=== PATIENT | male | born 1945 | race Caucasian/White ===

== ENCOUNTER 2019-10-31 04:59 | Observation (INO) ==
--- NOTE | 2019-10-03 14:45 | PAT Medication Instructions ---
Medication Instructions Date of Service October 03, 2019 Home Medications Metoprolol 1 tab PO QAM allopurinol 300 mg PO BID aspirin [Aspir-81] 81 mg PO QAM citalopram 40 mg PO QAM lisinopril 10 mg PO QAM omeprazole 20 mg PO QAM pregabalin [Lyrica] 150 mg PO BID DO NOT take the morning of surgery lisinopril 10 mg PO QAM Take morning of surgery With a small sip of water, OTHERWISE NOTHING TO EAT OR DRINK AFTER MIDNIGHT: Metoprolol 1 tab PO QAM allopurinol 300 mg PO BID aspirin [Aspir-81] 81 mg PO QAM citalopram 40 mg PO QAM omeprazole 20 mg PO QAM pregabalin [Lyrica] 150 mg PO BID Take evening before surgery allopurinol 300 mg PO BID pregabalin [Lyrica] 150 mg PO BID Other Notes If you have any questions please call us at [phone] or [phone] or [phone] or [phone]
--- NOTE | 2019-10-04 10:49 | Anesthesiology Consultation ---
Date of Service October 04, 2019 Assessment & Plan (1) Encounter for pre-operative examination: Chart Review Chart Review: Pending: Refer to Additional Notes / Consult section (surgeon ordered PCP clearance, upcoming cardio visit, pre op Covid testing) and Patient seen in Pre Admission Testing Pending surgeon ordered PCP clearance and 10/09 cardio visit (possible clearance per patient). Per PAT appt 10/04/19, [facility]. works at grocery store but takes all precautions. Patient usually wears mask in public Teaching & Discussion Pre-Anesthesia Teaching/Discussion Notes: Instructed NPO after midnight before surgery,except medications with 15 cc of water. Medication instructions provided according to the PAT guidelines. History Surgery Operation Date: 10/31/19 10:20 Proposed Procedures p Left Total Knee Arthroplasty - Evan Arias MD Height/Weight Height: 5 ft 5 in Weight: 83.6 kg Allergies Allergy/AdvReac Type Severity Reaction Status Date / Time No Known Allergies Allergy Verified 10/03/19 09:08 Medications Home Medications Medication Instructions Recorded Confirmed Last Taken allopurinol 300 mg PO BID 10/03/19 10/03/19 Unknown aspirin [Aspir-81] 81 mg PO QAM 10/03/19 10/03/19 Unknown citalopram 40 mg PO QAM 10/03/19 10/03/19 Unknown lisinopril 10 mg PO QAM 10/03/19 10/03/19 Unknown omeprazole 20 mg PO QAM 10/03/19 10/03/19 Unknown pregabalin [Lyrica] 150 mg PO BID 10/03/19 10/03/19 Unknown metoprolol succinate 25 mg PO DAILY 10/04/19 10/04/19 Unknown Past Medical History Medical History (Updated 10/04/19 @ 16:11 by Geovanna Healy PA-C) Anxiety Arthritis CAD (coronary artery disease) s/p stent to Cx Cancer MELANOMA BACK-REMOVAL X 2 Depression Fibromyalgia GERD (gastroesophageal reflux disease) Controlled and stable Gout No recent flares- controlled with med Myocardial Infarction 04/2018-F/U [facility] Temporomandibular joint disorder BILAT POPS-HAS NEVER LOCKED Exercise / Class Metabolic Activity II 4-5 Yardwork/Stairs/Walk up hill (one flight of stairs- no chest pain or SOB- uses walking cane for long distance ambulation or if knee pain flared up ) Past Surgical History Surgical History (Updated 10/04/19 @ 16:11 by Geovanna Healy PA-C) H/O neck surgery BENIGN EXCISION MASS History of cardiac cath 04/2018 1 STENT/[facility] History of cystoscopy WITH BIOPSY History of herniorrhaphy R/L Status post surgical removal of malignant neoplasm of skin Past Anesthesia History No Hx of Anesthesia Complications and No Family Hx of Anesthesia Complications History of PONV No Hx of PONV and No Hx of Motion Sickness Social History Smoking Status: Never smoker Do You Dip or Chew Tobacco: No Hx Alcohol Use: Yes Alcohol type: beer alcohol intake frequency: other Alcohol Intake Frequency Comment: 1X Q 3 MONTHS Hx Substance Use: No Review of Systems Patient denies chest pain, shortness of breath, dyspnea on exertion, cough, wheezing, palpitations. No hx of seizures, stroke, apnea/snoring. No hx of blood clots or blood t ransfusions Physical Exam Vital Signs VITALS BP 102/66 P 60 TEMP 98.1 SP02 96% RESP 16 Constitutional no acute distress ENMT Mouth: no chipped teeth Thyromental Distance: > or= 3.5 Finger Breadths (3.5) Mallampati Class: II Partial top denture Missing molars on bottom Neck + short neck, + thick neck and + limited neck extension (moderate to severe ) Respiratory normal respiratory effort; no respiratory distress Auscultation: lungs clear to auscultation bilaterally and + diminished lung sounds (throughout- mild ); no wheezes Cardiovascular Rate/Rhythm: regular rate and regular rhythm Heart Sounds: no murmur Vessels: no carotid bruit Musculoskeletal Spine: + pain with cervical ROM Neurologic moves all extremities Psychiatric Orientation: alert Testing Laboratory Results PT 10.8 Seconds (9.0-12.0) 10/04/19 11:19 INR 1.0 (0.9-1.1) 10/04/19 11:19 Urine Color Yellow 10/04/19 11:19 Urine Appearance Clear (Clear) 10/04/19 11:19 Urine pH 5.5 (4.5-7.5) 10/04/19 11:19 Ur Specific [place] 1.018 (1.000-1.030) 10/04/19 11:19 Urine Protein Negative (Negative) 10/04/19 11:19 Urine Glucose (UA) Negative (Negative) 10/04/19 11:19 Urine Ketones Negative (Negative) 10/04/19 11:19 Urine Nitrite Negative (Negative) 10/04/19 11:19 Ur Leukocyte Esterase Negative (Negative) 10/04/19 11:19 Blood Type O Positive 10/04/19 11:19 Antibody Screen NEGATIVE 10/04/19 11:19 10/04/19 11:19 Urine Culture - Preliminary Urine,Clean Catch No growth - Less than 1,000 colonies/mL, Final report to follow. 10/02/19= WBC: 6.3 H/H: 14.6/45.9 PLATELETS: 195 SODIUM: 141 POTASSIUM: 4.1 CHLORIDE: 107 CO2: 27 BUN: 20 CREATININE: 1.2 GLUCOSE: 105 Electrocardiogram Date: 10/04/19 Findings: + SB @ (59) Echocardiogram Date: 04/22/18 EF: 55-60% LV Function: normal LV- grossly normal size. RV- normal size, thickness and systolic function. MV grossly normal in structure. Stress Test Date: 05/13/18 Type: exercise [facility] exercise EKG taken to 5.0 METS. MPHR 66% obtained. No obvious ST-T wave changes or exercise induced arrhythmias. Cardiac Catheterization Date: 04/21/18 LAD= 50-75% Cx= 50-95% RCA= 60% Three vessel CAD and IFR RCA 0.97. Successful one vessel stenting of left Cx artery. Anomalous RCA cannulated with ALI.
[2019-10-04 13:07] LABS: Appearance Urine Clear (Clear); Bilirubin Urine Negative (Negative); Blood Urine Negative (Negative); Color Urine Yellow; Glucose Urine UA Negative (Negative); Ketones Urine Negative (Negative); Leukocyte Esterase Urine Negative (Negative); Nitrite Urine Negative (Negative); Protein Urine Negative (Negative); Specific Gravity Urine 1.018 (1.000-1.030); Urobilinogen Urine Negative (Negative); pH Urine 5.5 (4.5-7.5)
[2019-10-04 13:34] LABS: Prothrombin Time 10.8 Seconds (9.0-12.0)
--- NOTE | 2019-10-04 14:06 | Electrocardiogram Report ---
Test Reason : Blood Pressure : / mmHG Vent. Rate : 059 BPM Atrial Rate : 059 BPM P-R Int : 144 ms QRS Dur : 096 ms QT Int : 432 ms P-R-T Axes : 067 071 061 degrees QTc Int : 427 ms Sinus bradycardia Otherwise normal ECG No previous ECGs available Confirmed by Claudio Lord ([id number]) on 10/04/2019 2:05:29 PM Referred By: Evan Arias Confirmed By:Claudio Lord
[2019-10-31] MEDS: LR 500ML BOLUS, THEN 15ML/HR IV SCH (05:40)
[2019-10-31] MEDS ORDERED: LR 60ML/HR IV SCH (06:00)
[2019-10-31] MEDS ORDERED: CEFAZOLIN 2000MG 2,000 MG/15 ML SYR IV SCH (06:00)
[2019-10-31] MEDS ORDERED: TRANEXAMIC ACID 1,000 MG x 1 **For Topical Use TOP SCH ×2 (06:00)
[2019-10-31] MEDS ORDERED: ROPIVACAINE 0.5% HCL/PF 150 MG, BUPIVACAINE 0.5% MPF 30 ML, EPINEPHrine 0.15 MG, Ketoro... INFIL SCH (06:00)
[2019-10-31] MEDS ORDERED: CeleBREX 200 MG CAP PO SCH (06:00)
[2019-10-31] MEDS ORDERED: BUPIVACAINE 0.5 % 5 MG/1 ML PF 10ML VIAL ONE (06:22)
[2019-10-31] MEDS ORDERED: ROPIVACAINE 0.5% 5 MG/ML 30 ML VIAL ONE (06:23)
[2019-10-31] MEDS ORDERED: EPINEPHrine INJ 1 MG/ML AMP ONE ×2 (06:23→06:53)
--- NOTE | 2019-10-31 06:40 | History & Physical Bridge Note ---
Date of Service October 31, 2019 History & Physical Bridge Note I have examined the patient, reviewed the History & Physical and in the interval since the performance of the History & Physical I have noted the following changes of clinical significance: no changes noted Patient is aware of the risks and is asymptomatic COVID-19. Currently, COVID-19 test is pending.
[2019-10-31] MEDS ORDERED: MIDAZOLAM HCL 1 MG/ML 2ML VIAL ONE (06:45)
[2019-10-31] MEDS ORDERED: ONDANSETRON INJ 2 MG/ML 2 ML VIAL IV PRN (07:06)
[2019-10-31] MEDS ORDERED: ePHEDrine sulfate 50 MG/ML AMP IV PRN (07:06)
[2019-10-31] MEDS ORDERED: ATROPINE SULFATE 0.1 MG/ML 10ML SYR IV PRN (07:06)
[2019-10-31] MEDS ORDERED: HYDROmorphone INJ 0.5 MG/0.5 ML SYR IV PRN ×2 (07:06→10:14)
[2019-10-31] MEDS ORDERED: MEPERIDINE HCL 25 MG/ML CARP/VIAL IV PRN (07:06)
[2019-10-31] MEDS ORDERED: PHENYLEPHRINE 100MCG/ML 5ML SYR IV PRN (07:06)
[2019-10-31] MEDS ORDERED: LABETALOL HCL IV 5 MG/ML 20ML IV PRN (07:06)
[2019-10-31] MEDS ORDERED: fentaNYL citrate 100 MCG/2 ML VIAL IV PRN (07:06)
[2019-10-31] MEDS ORDERED: LIDOCAINE HCL 2% 2 ML VIAL/AMP(20MG/ML) INFIL ONE (07:26)
[2019-10-31] MEDS ORDERED: PROPOFOL IV EMULSION 10 MG/ML 20 ML VIAL IV ONE ×2 (07:26→08:13)
[2019-10-31] MEDS ORDERED: ORTHO JOINT ANESTHETIC ONE (08:50)
[2019-10-31] MEDS ORDERED: ePHEDrine sulfate 50 MG/ML SYR ONE (08:58)
--- NOTE | 2019-10-31 09:56 | Post Operative Brief Note ---
Immediate Post Op Note v1 Date of Surgery October 31, 2019 Pre & Post Diagnosis Operation Date: 10/31/19 07:00 Pre-Op Diagnosis: Left Knee Osteoarthritis Post-Op Diagnosis: Left Knee Osteoarthritis I identified the patient and participated in the time-out.: Yes Procedure Operation Date: 10/31/19 07:00 Actual Procedures p Left Total Knee Arthroplasty(Left) - Evan Arias MD Surgeon Evan Arias MD Silver Plater Hamzah Linn PA-C (No fellow Avail) Estimated Blood Loss 150 Findings Consistent with Post-Op Diagnosis Fluids 1500 cc Specimens L knee contents Anesthesia Type MAC Spinal Regional Complications none
--- NOTE | 2019-10-31 09:57 | Operative Report ---
Post Operative Report Pre & Post Diagnosis Operation Date: 10/31/19 07:00 Pre-Op Diagnosis: Left Knee Osteoarthritis Post-Op Diagnosis: Left Knee Osteoarthritis I identified the patient and participated in the time-out.: Yes Procedure Operation Date: 10/31/19 07:00 Actual Procedures p Left Total Knee Arthroplasty(Left) - Evan Arias MD Surgeon Evan Arias MD Java Programmer Hamzah Linn PA-C (No fellow Avail) Estimated Blood Loss 150 Findings See Below Examined Under Anesthesia: Pre-op ROM -- There was 10 degrees to 100 degrees of flexion Ligamentous examination -- revealed stable Brian, posterior drawer, varus and valgus stress at 10 and 30 degrees. Outerbridge Type IV changes of medial and patellofemoral compartments, there was Outerbridge type II3 changes of the lateral compartment. Post-op ROM -- 0-130 degrees Fluids 1500 cc Specimens Left knee contents Drains N/A Anesthesia Type MAC Spinal Regional Complications none Indications This is a 73-year-old male who has clinical and radiographic findings consistent with osteoarthritis of the a left knee. I recommended that a left total knee replacement be performed. The patient understands the risks of surgery, which include but not limited to: bleeding, infection, re-operation, damage to nerves and arteries, continued knee pain, knee stiffness, DVT, and . The patient understands all of these instructions and explanations, all of his questions have been satisfactorily addressed and the patient has elected to proceed. Informed consent was signed. Description of Procedure IMPLANTS: 1. Femur: Triathlon #4 Left PS. 2. Tibia: Triathlon #4 [place]. 3. Insert: Triathlon #4 x 9 mm PS X3 poly. 4. Patella: Triathlon A32 x 9 mm X3 poly. 5. Simplex cement. Lenka Linn PA-C is assisting with positioning, retraction, and closure due to fellow not available. PROCEDURE: The patient was taken to the Operating Room and placed in the supine position after spinal and adductor canal nerve block was administered. My initials and a multidisciplinary time-out were used to identify the left leg as the correct operative limb. A tourniquet was placed high in the thigh. Prior to the incision, 2 grams of intravenous Ancef were given. The left leg was then prepped and draped in a standard sterile fashion. An Esmarch was used to exsanguinate the leg and the tourniquet was inflated to 250 mmHg. The planned mid-line 20 cm incision was created exposing the extensor mechanism. The medial parapatellar arthrotomy was made and the patella was everted. The patella was addressed first. It was prepared by reaming from 21 mm down to 10 mm. An A32 button was found to fit best. The peg holes were made in the standard fashion. The femur was addressed next and the guide ean was placed intramedullary. The initial cutting block was placed with 5 degrees of valgus and removing 10 mm for the distal cut. The cut was made and the 4-in-1 cutting block for a size 4 femur was placed. These cuts and the cuts to place the box were made in the standard fashion. Our attention was then drawn to the tibia cut with the external cutting guide, taking 4 mm from the medial low side. There was sufficient extension and flexion gap to fit a 9 mm spacer. A #4 Tibial baseplate fit well. A trial with a 9 mm spacer showed excellent stability in both flexion and extension, with good ligament balance. Range of motion of 0-130 degrees. The tibial baseplate was pinned and the final preparation for the keel and stem was made. All the trial components were tested again, with good stability and thumbs free tracking of the patella. All components were removed. The tourniquet was deflated. Hemostasis was obtained. 90 ml of total knee cocktail were injected into the soft tissues and periosteum. A bone plug was placed in the femur and covered with bone wax. Topical TXA was used after irrigation of the wound. After a 15 minute break, the limb was exsanguinated again and the tourniquet was re-inflated. All surfaces were copiously irrigated prior to placement of the components. The femoral component and Tibial baseplate were placed with the first and then the 9 mm X3 poly was placed. With the same batch of Simplex cement the patellar button was placed. Again the range of motion and stability were excellent and unchanged. The extensor mechanism was closed with 1-0 and 0 Vicryl with the knee bent approximately 60 degrees in a standard fashion. The peritenon and deep fascia was closed with 2-0 Vicryl. The subcutaneous layer was closed with 3-0 Vicryl. The skin was closed with Zipline. The limb was cleaned and dried. 4x4 dressing was placed over top followed by ABDs, sterile Webril, and a foot to thigh Louie bandage. The patient was then transferred to the Recovery Room in stable condition. The sponge and needle counts were correct. POST-OP INSTRUCTIONS: The patient will be WBAT. The patient will be admitted to the hospital, with a hospitalist consult to medically manage. The patient will use the knee immobilizer when ambulating and standing until good quad control is achieved. Labs will be obtained during the stay. DVT prophylaxis will included aspirin for 6 weeks, TEDs, and mechanical foot pumps. The dressing will be changed prior to their discharge or postop day #2 and covered with a Silverlon dressing, whichever comes first. I attest to the content of the Intraoperative Record and any orders documented therein. Any exceptions are noted below.
[2019-10-31] MEDS ORDERED: OXYCODONE HCL IR 5 MG TAB (IMMEDIATE RELEASE) PO PRN (10:14)
[2019-10-31] MEDS ORDERED: ALUMINUM/MAGNESIUM SUSP 30 ML UDC PO PRN (10:14)
[2019-10-31] MEDS ORDERED: DiphenhydrAMINE HCL 50 MG/ML VIAL IV PRN (10:14)
[2019-10-31] MEDS ORDERED: NALOXONE HCL 0.4 MG/1 ML VIAL/CARP IV PRN (10:14)
[2019-10-31] MEDS ORDERED: bisacodyL 10 MG SUPP PR PRN (10:14)
[2019-10-31] MEDS ORDERED: MAGNESIUM HYDROXIDE SUSP 30 ML UDC PO PRN (10:14)
[2019-10-31] MEDS ORDERED: METOCLOPRAMIDE HCL INJ 5 MG/ML 2 ML VIAL IV PRN (10:14)
--- NOTE | 2019-10-31 10:18 | Operative Report ---
Post Operative Report Pre & Post Diagnosis Operation Date: 10/31/19 07:00 Pre-Op Diagnosis: Left Knee Osteoarthritis Post-Op Diagnosis: Left Knee Osteoarthritis I identified the patient and participated in the time-out.: Yes Procedure Operation Date: 10/31/19 07:00 Actual Procedures p Left Total Knee Arthroplasty(Left) - Evan Arias MD Surgeon Evan Arias MD [employer] Assistant Principal Hamzah Linn PA-C (No fellow Avail) Estimated Blood Loss 150 Findings Consistent with Post-Op Diagnosis Specimens bone and soft tissue Complications none Indications See Dr Arias operative report for full details Description of Procedure See Dr Arias operative report for full details. I was lead recreation assistant during entire case to include prepping, draping, limb and instrument handling, wound closure, dressings. I attest to the content of the Intraoperative Record and any orders documented therein. Any exceptions are noted below.
--- NOTE | 2019-10-31 10:29 | Anesthesiology Progress Note ---
Date of Service October 31, 2019 Anesthesia Post Procedure Vital Signs Vital Signs: Temp Pulse Pulse Resp BP BP Pulse Ox 10/31/19 10:20 58 L 17 111/61 97 10/31/19 10:10 60 21 104/62 97 10/31/19 10:03 36.7 C 59 L 12 111/66 95 10/31/19 05:25 36.4 C L 62 18 122/80 96 Transfer of Care Handoff Completed per policy Notes Mental Status: alert / awake / arousable Patient Amnestic to Procedure: Yes Nausea / Vomiting: adequately controlled Pain: adequately controlled Airway Patency, RR, SpO2: stable & adequate BP & HR: stable & adequate Hydration State: stable & adequate Neuraxial Anesthesia: was administered and sensory block is resolving Anesthetic Complications: no major complications apparent and Pt Satisfied with anesthetic care
--- NOTE | 2019-10-31 10:42 | XRay Report ---
XR knee LT 1 or 2V routine HISTORY: 73 years-old Male Surgical Post Op [knee total joint arthroplasty COMPARISON: Leg length study radiographs 06/08/2019 TECHNIQUE: 2 views of the left knee FINDINGS: Left knee total joint arthroplasty and patella resurfacing. Expected postoperative soft tissue swelli ng with deep tissue air. Satisfactory alignment without acute fracture or retained foreign body. Surg ical drainage catheter. Arterial calcifications. IMPRESSION: Left knee total joint arthroplasty with expected postoperative changes. ACT 112: Negative or not required by law. The above report was generated using voice recognition software. It may contain grammatical, syntax o r spelling errors. Electronically signed by: Alexys Leon M.D. 10/31/2019 10:40 AM
--- NOTE | 2019-10-31 13:00 | Orthopedic Progress Note ---
Date of Service October 31, 2019 Assessment & Plan (1) Arthritis of knee, left: POD #0 s/p L TKA, doing as well as expected. Resume diet. WBAT LLE with walker, next 48 hours or until demonstrates good quad control use immobilizer. OOB to chair. Continue pain control. Check labs tomorrow. DVT prophylaxis: TEDs 3 weeks, foot pumps while in hospital, ASA 81 mg BID for 6 weeks. PT/OT. Appreciate Hospitalist input. D/C planning. Present on Admission?: Yes Admission and Anticipated Discharge Date Admission Date: October 31, 2019 Subjective Feeling pretty good. Still cannot feel Review of Systems Review of Systems: All systems reviewed & are unremarkable except as noted in HPI & below Physical Exam Physical Exam: LLE: Dressing clean, dry, intact. Calf soft. Results & Data ([facility]) Vital Signs (Past 12 Hours) Vital Signs Temp Pulse Pulse Resp BP BP Pulse Ox 10/31/19 12:53 36.6 C 61 18 97/61 L 99 10/31/19 12:00 36.4 C L 53 L 18 113/70 98 10/31/19 11:25 36.3 C L 50 L 16 109/66 98 10/31/19 10:50 36.6 C 53 L 16 105/62 97 10/31/19 10:30 36.4 C L 56 L 20 110/67 97 10/31/19 10:20 58 L 17 111/61 97 10/31/19 10:10 60 21 104/62 97 10/31/19 10:03 36.7 C 59 L 12 111/66 95 10/31/19 05:25 36.4 C L 62 18 122/80 96 Diagnostic Findings AP & Lateral X-rays L knee shows cemented components for Left TKA in good position.
[2019-10-31] MEDS: ACETAMINOPHEN 500 MG TAB PO SCH ×2 (14:15→21:44)
[2019-10-31] MEDS: CEFAZOLIN 2000MG 2,000 MG/15 ML SYR IV SCH ×2 (14:32→22:06)
[2019-10-31] MEDS: SODIUM CHLORIDE 0.9% 1000ML 1,000 ML IV SCH (14:32)
[2019-10-31] MEDS: Scopolamine CHECK PATCH PLACEMENT SCH (16:16)
--- NOTE | 2019-10-31 16:38 | Hospitalist Consultation ---
Date of Consultation October 31, 2019 Assessment & Plan (1) Arthritis of knee, left: s/p left tka Dvt proph, pain medications per surgery Monitor for acute blood loss (2) Anxiety: Continue citalopram (3) Depression: Continue citalopram (4) Fibromyalgia: Continue Lyrica (5) Hypertension: Continue metoprolol, hold lisinopril for POD #1 to avoid hypotension (6) CAD (coronary artery disease): Continue metoprolol, ASA History of Present Illness Attending Physician: Evan Arias MD History of Present Illness Mr. Hernandez is s/p left TKA today. He is doing well, no complaints. Allergies Allergy/AdvReac Type Severity Reaction Status Date / Time No Known Allergies Allergy Verified 10/31/19 05:32 Home Medications Home Medications Medication Instructions Recorded Confirmed Type allopurinol 300 mg PO BID 10/03/19 10/31/19 History aspirin [Aspir-81] 81 mg PO QAM 10/03/19 10/31/19 History citalopram 40 mg PO QAM 10/03/19 10/31/19 History lisinopril 10 mg PO QAM 10/03/19 10/31/19 History omeprazole 20 mg PO QAM 10/03/19 10/31/19 History pregabalin [Lyrica] 150 mg PO BID 10/03/19 10/31/19 History metoprolol succinate 25 mg PO DAILY 10/04/19 10/31/19 History Patient History Medical History Anxiety Arthritis CAD (coronary artery disease) s/p stent to Cx Cancer MELANOMA BACK-REMOVAL X 2 Depression Fibromyalgia GERD (gastroesophageal reflux disease) Controlled and stable Gout No recent flares- controlled with med Hyperlipidemia Hypertension [facility]ocardial [facility]ction [facility] Temporomandibular joint disorder BILAT POPS-HAS NEVER LOCKED Surgical History H/O neck surgery BENIGN EXCISION MASS History of cardiac cath 04/2018 1 STENT/[facility] History of cystoscopy WITH BIOPSY History of herniorrhaphy R/L Status post surgical removal of malignant neoplasm of skin Family History Other Family history non-contributory Social History Smoking Status: Never smoker Second Hand Exposure: Yes (SPOUSE USED TO SMOKE/QUIT); Do You Dip or Chew Tobacco: No; Hx Alcohol Use: Yes Alcohol type: beer Hx Substance Use: No Preferred Language: Azerbaijani Communication Ability: Effective Mix Technician Required: No Beliefs That Will Affect Care: None marital status: Current Living Situation: Spouse Other Information That Helps Us Care for You: No Feels Safe at Home: Yes Safety Concerns: Feels Safe At This Time Review of Systems Constitutional: no fever, no chills and no body aches Respiratory: no cough, no dyspnea and no wheezing Cardiovascular: no chest pain and no dyspnea Gastrointestinal: no abdominal pain, no nausea and no vomiting Genitourinary: no dysuria and no urinary hesitancy Musculoskeletal: no back pain and no joint pain Integumentary: no rash Physical Exam Physical Exam: General: no distress Eyes: normal inspection, PERLL Respiratory: chest non tender, clear to auscultation, normal breath sounds, no respiratory distress, no accessory muscle use Cardiac: regular rate and rhythm, no rub or gallop, no murmur, no edema, no jvd GI/: active bowel sounds, no abd pain or tenderness, soft, non distended Extremities: normal range of motion, normal strength, non tender Neuro/Psych: alert and oriented x 3, normal mood and affect Skin: normal color, dry Results & Data Results & Data ([facility]) Vital Signs (Past 12 Hours) Vital Signs Temp Pulse Pulse Resp BP BP Pulse Ox 10/31/19 16:12 36.7 C 59 L 18 123/73 94 10/31/19 14:08 36.5 C 59 L 18 105/64 96 10/31/19 12:53 36.6 C 61 18 97/61 L 99 10/31/19 12:00 36.4 C L 53 L 18 113/70 98 10/31/19 11:25 36.3 C L 50 L 16 109/66 98 10/31/19 10:50 36.6 C 53 L 16 105/62 97 10/31/19 10:30 36.4 C L 56 L 20 110/67 97 10/31/19 10:20 58 L 17 111/61 97 10/31/19 10:10 60 21 104/62 97 10/31/19 10:03 36.7 C 59 L 12 111/66 95 10/31/19 05:25 36.4 C L 62 18 122/80 96 PG Care Time/CCT Total # of Minutes Spent Total Time Spent with Patient: Total time spent is greater than 50% in coordination of care (as documented) at patient's floor/unit and/or counseling patient: Coding Level of Care Code 97861 Inpt Consult Level 4 Diagnoses Arthritis of knee, left M17.12 Anxiety F41.9 Depression F32.9 Fibromyalgia M79.7 Hypertension I10 CAD (coronary artery disease) I25.10
[2019-10-31] MEDS: FERROUS GLUCONATE 324 MG TAB PO SCH (17:53)
[2019-10-31] MEDS: ASCORBIC ACID 500 MG TAB PO SCH (17:53)
[2019-10-31] MEDS ORDERED: SENNA 8.6 MG TAB PO SCH (21:00)
[2019-10-31] MEDS: allopurinoL 300 MG TAB PO SCH (21:44)
[2019-10-31] MEDS: PREGABALIN 150 MG CAP PO SCH (21:44)
[2019-10-31] MEDS: DOCUSATE SODIUM 100 MG CAP PO SCH (21:44)
[2019-11-01] MEDS: Scopolamine CHECK PATCH PLACEMENT SCH ×2 (00:15→09:21)
[2019-11-01] MEDS: SODIUM CHLORIDE 0.9% 1000ML 1,000 ML IV SCH (01:00)
[2019-11-01] MEDS: ACETAMINOPHEN 500 MG TAB PO SCH ×2 (05:57→12:32)
[2019-11-01] MEDS: LR 500ML BOLUS, THEN 15ML/HR IV SCH (05:57)
[2019-11-01 06:20] LABS: Hematocrit (blood only) 35.5 % (42-52); Hemoglobin 11.8 g/dL (14.0-18.0); Mean Corpuscular Hemoglobin 28.6 pg (25-34); Mean Corpuscular Hgb Conc 33.2 g/dL (32-36); Mean Corpuscular Volume 86.2 fL (80-100); Mean Platelet Volume 10.6 fL (7.4-10.4); Platelet Count 134 K/uL (130-400); RDW Coefficient of Variation 15.1 % (11.5-14.5); RDW Standard Deviation 47.3 fL (36.4-46.3); Red Blood Count 4.12 M/uL (4.7-6.1); White Blood Count 8.72 K/uL (4.8-10.8)
[2019-11-01 06:56] LABS: BUN Creatinine Ratio 17.6 (10-20); Calcium 8.7 mg/dl (8.5-10.1); Creatinine Clr Calc Pharmacy 52.8 ml/min; Est GFR (African American) 67.1; Est GFR (Non-African American) 57.9
--- NOTE | 2019-11-01 07:59 | Anesthesiology Progress Note ---
Date of Service November 01, 2019 Anesthesia Post Procedure Vital Signs Vital Signs: Temp Pulse Pulse Resp BP BP Pulse Ox 11/01/19 07:21 36.7 C 62 18 118/74 96 11/01/19 03:47 37.1 C 63 18 114/61 95 10/31/19 23:45 36.6 C 56 L 20 109/71 94 10/31/19 21:42 36.6 C 55 L 18 110/70 94 10/31/19 16:12 36.7 C 59 L 18 123/73 94 10/31/19 14:08 36.5 C 59 L 18 105/64 96 10/31/19 12:53 36.6 C 61 18 97/61 L 99 10/31/19 12:00 36.4 C L 53 L 18 113/70 98 10/31/19 11:25 36.3 C L 50 L 16 109/66 98 10/31/19 10:50 36.6 C 53 L 16 105/62 97 10/31/19 10:30 36.4 C L 56 L 20 110/67 97 10/31/19 10:20 58 L 17 111/61 97 10/31/19 10:10 60 21 104/62 97 10/31/19 10:03 36.7 C 59 L 12 111/66 95 Notes Mental Status: alert / awake / arousable and participated in evaluation Patient Amnestic to Procedure: Yes Nausea / Vomiting: adequately controlled Pain: adequately controlled Airway Patency, RR, SpO2: stable & adequate BP & HR: stable & adequate Hydration State: stable & adequate Neuraxial Anesthesia: was administered and sensory block resolved Anesthetic Complications: no major complications apparent and Pt Satisfied with anesthetic care
[2019-11-01] MEDS ORDERED: METOPROLOL SUCC 25MG EXT REL TAB PO SCH (09:00)
[2019-11-01] MEDS ORDERED: MULTIVITAMIN TAB PO SCH (09:00)
[2019-11-01] MEDS ORDERED: PANTOprazole 40 MG TAB PO SCH (09:00)
[2019-11-01] MEDS ORDERED: lisinopriL 10 MG TAB PO SCH (09:00)
[2019-11-01] MEDS ORDERED: ASPIRIN 81 MG ECTAB PO SCH (09:00)
[2019-11-01] MEDS ORDERED: CITALOPRAM 40 MG TAB PO SCH (09:00)
[2019-11-01] MEDS: DOCUSATE SODIUM 100 MG CAP PO SCH (09:20)
[2019-11-01] MEDS: allopurinoL 300 MG TAB PO SCH (09:20)
[2019-11-01] MEDS: FERROUS GLUCONATE 324 MG TAB PO SCH (09:20)
[2019-11-01] MEDS: ASCORBIC ACID 500 MG TAB PO SCH (09:21)
[2019-11-01] MEDS: PREGABALIN 150 MG CAP PO SCH (09:24)
--- NOTE | 2019-11-01 09:31 | Orthopedic Progress Note ---
Date of Service November 01, 2019 Assessment & Plan (1) Arthritis of knee, left: POD #1 s/p L TKA, doing as well as expected. Continue diet. WBAT LLE with walker, next 24 hours or until demonstrates good quad control use immobilizer. OOB to chair. Continue pain control. DVT prophylaxis: TEDs 3 weeks, foot pumps while in hospital, ASA 81 mg BID for 6 weeks. PT/OT. Appreciate Hospitalist input. D/C planning. - possibly home this afternoon depending on how he does in PT. [facility] being arranged. I, Dr. Arias, saw and examined the patient and agree with the above findings and plan of care discussed with my PA. Admission and Anticipated Discharge Date Admission Date: October 31, 2019 Subjective doing fine, has been out of bed, states that he didn't sleep much last night due to not being comfortable in bed. no pain, just "stiffness". Denies chest pain, shortness of breath, numbness, tingling, lightheadedness or dizziness. Review of Systems Review of Systems: All systems reviewed & are unremarkable except as noted in HPI & below Physical Exam Physical Exam: Left leg dressings clean, dry, intact. Able to independently SLR. Strength LLE 5/5. Distal sensation normal, no distal edema. No calf tenderness. Immobilizer reapplied. Toes moves well, distal pulses 1+ Able to preform a straight leg raise without immobilizer. Results & Data ([facility]) Vital Signs (Past 12 Hours) Vital Signs Temp Pulse Resp BP BP Pulse Ox 11/01/19 07:21 36.7 C 62 18 118/74 96 11/01/19 03:47 37.1 C 63 18 114/61 95 10/31/19 23:45 36.6 C 56 L 20 109/71 94 10/31/19 21:42 36.6 C 55 L 18 110/70 94 Laboratory Results 11/01/19 11/01/19 Range/Units 05:56 05:56 WBC 8.72 (4.8-10.8) K/uL RBC 4.12 L (4.7-6.1) M/uL Hgb 11.8 L (14.0-18.0) g/dL Hct 35.5 L (42-52) % MCV 86.2 (80-100) fL MCH 28.6 (25-34) pg MCHC 33.2 (32-36) g/dL RDW Std Deviation 47.3 H (36.4-46.3) fL RDW Coeff of Panchito 15.1 H (11.5-14.5) % Plt Count 134 (130-400) K/uL MPV 10.6 H (7.4-10.4) fL Sodium 138 (136-145) mmol/L Potassium 4.0 (3.5-5.1) mmol/L Chloride 107 (98-107) mmol/L Carbon Dioxide 26 (21-32) mmol/L Anion Gap 5.0 (3-11) BUN 22 H (7-18) mg/dl Creatinine 1.23 (0.6-1.4) mg/dl Est Cr Clr Drug Dosing 52.8 ml/min Est GFR ( Amer) 67.1 Est GFR (Non-Af Amer) 57.9 BUN/Creatinine Ratio 17.6 (10-20) Glucose 107 H (70-99) mg/dl Calcium 8.7 (8.5-10.1) mg/dl
--- NOTE | 2019-11-01 13:52 | Orthopedic Progress Note ---
Date of Service November 01, 2019 Assessment & Plan (1) Arthritis of knee, left: POD #1 s/p L TKA, doing as well as expected. Continue diet. WBAT LLE with walker, next 24 hours or until demonstrates good quad control use immobilizer. OOB to chair. Continue pain control with PO meds and ice. DVT prophylaxis: TEDs 3 weeks, foot pumps while in hospital, ASA 81 mg BID for 6 weeks. PT/OT. Appreciate Hospitalist input. Dressings changed to silverlon waterproof dressing. D/C planning. -home this afternoon. [facility] being arranged. I, Dr. Arias, saw and examined the patient and agree with the above findings and plan of care discussed with my PA. Admission and Anticipated Discharge Date Admission Date: October 31, 2019 Subjective Receiving PM PT. Doing well. Feels ready to go home this PM. Pain controlled with knee feeling "sore". Tolerating PO diet and fluids as well as PO pain medication. Denies S/S of DVT or infection. Denies CP, SOB, lightheadedness or dizziness. Physical Exam Physical Exam: Left knee post op dressings removed. Zip line and cover intac t. Incision is dry. 1+ knee effusion. No redness or warmth. B calves soft and nontender. NV intact with palpable DP and PT pulses. Sensation intact to light touch. Able to 5/5 B EHL, TA, gastroc strength. Able to do SLR left leg. Results & Data ([facility]) Vital Signs (Past 12 Hours) Vital Signs Temp Pulse Resp BP BP Pulse Ox 11/01/19 07:21 36.7 C 62 18 118/74 96 11/01/19 03:47 37.1 C 63 18 114/61 95 Laboratory Results 11/01/19 11/01/19 Range/Units 05:56 05:56 WBC 8.72 (4.8-10.8) K/uL RBC 4.12 L (4.7-6.1) M/uL Hgb 11.8 L (14.0-18.0) g/dL Hct 35.5 L (42-52) % MCV 86.2 (80-100) fL MCH 28.6 (25-34) pg MCHC 33.2 (32-36) g/dL RDW Std Deviation 47.3 H (36.4-46.3) fL RDW Coeff of Panchito 15.1 H (11.5-14.5) % Plt Count 134 (130-400) K/uL MPV 10.6 H (7.4-10.4) fL Sodium 138 (136-145) mmol/L Potassium 4.0 (3.5-5.1) mmol/L Chloride 107 (98-107) mmol/L Carbon Dioxide 26 (21-32) mmol/L Anion Gap 5.0 (3-11) BUN 22 H (7-18) mg/dl Creatinine 1.23 (0.6-1.4) mg/dl Est Cr Clr Drug Dosing 52.8 ml/min Est GFR ( Amer) 67.1 Est GFR (Non-Af Amer) 57.9 BUN/Creatinine Ratio 17.6 (10-20) Glucose 107 H (70-99) mg/dl Calcium 8.7 (8.5-10.1) mg/dl
--- NOTE | 2019-11-01 17:42 | Hospitalist Progress Note ---
Date of Service November 01, 2019 Assessment & Plan (1) Arthritis of knee, left: s/p left tka Dvt proph, pain medications per surgery Acute blood loss anemia -> Hgb down to 11.8 on discharge. (2) Anxiety: Continue citalopram (3) Depression: Continue citalopram (4) Fibromyalgia: Continue Lyrica (5) Hypertension: Continue metoprolol, hold lisinopril for POD #1 to avoid hypotension (6) CAD (coronary artery disease): Continue metoprolol, ASA Admission and Anticipated Discharge Date Admission Date: October 31, 2019 Subjective Doing well today. Pain is very tolerable. Has walked the stairs. Physical Exam Constitutional: WD/WN, vitals as above Eyes: EOM intact bilaterally; no conjunctival abnormality ENMT: external ear and nose normal, oropharynx normal Neck: trachea midline, no thyromegaly normal visual inspection Respiratory: normal respiratory effort, lungs clear to auscultation no respiratory distress Cardiovascular: RRR, no murmur, no edema Gastrointestinal (Abdomen): Inspection/Auscultation: abdomen normal to inspection; abdomen not distended Musculoskeletal: no cyanosis or clubbing, extremities motor strength 5/5 Skin: no rashes, warm and dry Neurologic: moves all extremities and awake Psychiatric: Orientation: alert, oriented to person and cooperative Results & Data Results & Data ([facility]) Vital Signs (Past 12 Hours) Vital Signs Temp Pulse Pulse Resp BP BP Pulse Ox 11/01/19 14:11 36.7 C 56 L 62 18 114/61 118/74 96 11/01/19 07:21 36.7 C 62 18 118/74 96 PG Care Time/CCT Total # of Minutes Spent Total Time Spent with Patient: Total time spent is greater than 50% in coordination of care (as documented) at patient's floor/unit and/or counseling patient: Coding Level of Care Code 83557 Subseq Hosp Care Lvl 2 Diagnoses Arthritis of knee, left M17.12 Anxiety F41.9 Depression F32.9 Fibromyalgia M79.7 Hypertension I10 CAD (coronary artery disease) I25.10
--- NOTE | 2019-11-02 13:33 | Discharge Summary ---
Date of Service November 01, 2019 Principal Diagnosis Left knee osteoarthritis Discharge Data Allergies Allergy/AdvReac Type Severity Reaction Status Date / Time No Known Allergies Allergy Verified 10/31/19 05:32 Consultations 10/31/19 10:14 Consult Case Management - Discharge Planning Routine Consult Hospitalist Routine Procedures Performed Operation Date: 10/31/19 07:00 Actual Procedures p Left Total Knee Arthroplasty(Left) - Evan Arias MD Ordered Studies 10/31/19 05:00 US - OR guided needle placemen Routine Hospital Course (1) Arthritis of knee, left: 73 yr old male admitted under observation to [facility] after undergoing a Left total knee replacement on 10-31-[address] Arias. Patient tolerated spinal anesthesia and had no intr-op complications. He was transferred to the floor. Medicine was consulted secondary to patient with history of CAD and stent placement in 2019. Patients post-operative course was without incident. Pain controlled with PO pain medication. Tolerated PO diet and fluids. POD 1 AM labs wnl. VS stable throughout admission with lisinopril held. Seen by PT twice on POD 1. Ambulating with rolled walker WBAT with knee immobilizer. DVT prophylaxis consisted of foot pumps, teds, ASA 81mg. Patients post-op dressings removed on POD 1. Changed to silverlon waterproof dressing. Wound C/D/I with zip line. Case management arraigned HHPT. Patient deemed stable to DC home POD 1 in PM. Detailed Discharge Instructions listed below. In summary, WBAT L LE with wheeled walker. Knee immobilizer to be DCd after 48hrs if has good quad control with ambulating. Silverlon dressing to remain intact until F/U in office. Can shower but not submerge. DVT prophylaxis to include B LE knee high TEDS x 3wks and ASA 81mg BID x 6wks. New medications to include oxycodone for severe pain, tylenol for mild to moderate pain, ASA as noted, Vit C and Iron for 2wks. All scripts sent to pharmacy. Patient was educated on reasons to go to ED or call the office. F/U is scheduled for 11-15-19 at 10:45am. Office number [phone], Total Time Total Time Spent Total Time Spent (In Minutes): 20 Discharge Plan Discharge Items Patient Disposition: Home - Self-Care Reason For Visit: Left Knee Osteoarthritis Discharge Diagnosis: Left Knee Osteoarthritis Activity: Per Instructions section Bathing Comment: waterproof dressing to remain on; can shower but dont submerge Driving/Machine Use: No driving until cleared by surgeon Weightbearing: Left weightbearing Weightbearing Comment: as tolerated with walker; immobilizer x 48hrs post-op Non-emergency contact: Surgeon Call non-emergency contact if: your pain is not controlled, your temperature is above 101.5, your wound has increased redness and your wound has increased drainage Follow-up/Referrals: Evan Arias MD [Physician] - 11/15/19 10:45 am (with Windy Linn PA-C) Lizeth Aj MD [Primary Care Provider] - Diet: Regular Addtl Attending Provider Instructions: Post-operative Instructions Pain Expect to be in a fair amount of pain after surgery. Remember, our goal is not to eliminate your pain, but to make it tolerable. It is a good idea to stay ahead of your pain by taking the medications you were prescribed once you get home. Typically, the pain starts improving 3-7 days after surgery. You should start weaning off the narcotic pain medication (oxycodone) as soon as your pain improves. Please call our office if your pain is not adequately controlled. You can take tylenol 1000mg every 8hrs for mild to moderate pain. You can also restart you celebrex and take daily as needed. Ice Ice your operative site at least 5 times a day for 15-30 minutes at a time. Make sure you have a thin cloth between the ice or cooling unit and your skin to prevent bowman bite. This is especially important if you received a nerve block. Continue icing your operative site for the first 5-7 days after surgery, then as needed. Diet/Nausea/Vomiting Start by drinking clear liquids and eating crackers. If you can tolerate this, then you may resume your normal diet. If you feel nauseated or vomit, take Zofran/ondansetron (if prescribed). Please call our office if you have intractable nausea or vomiting, or, if after hours, you may go to the Emergency Room for help. Constipation Constipation is a common side effect of narcotic pain medication. If you have not had a bowel movement within 2 days after surgery, we recommend purchasing an over the counter laxative such as Milk of Magnesia, Dulcolax, or Miralax from a local pharmacy, and taking it as instructed. Call our clinic if any questions. Weight bearing and Range of Motion. Weightbearing as tolerated with walker. No restrictions with range of motion. *KNEE IMMOBILIZER x 48hrs AFTER SURGERY WHILE AMBULATING AND THEN CAN STOP (CONTINUE IF YOU DO NOT HAVE GOOD QUAD CONTROL)* Physical therapy Initially you will start with home health physical therapy. At our first visit with at our office we will provide you with script for outpatient physical therapy. Wound care and showering We will inspect your wound at your first post-operative visit, and may do a dressing change at that time. Most patients will be in a water-proof dressing that is removed 14 days after surgery. It is normal to see some dried blood on the dressing. Do not remove your dressing, paper strips or sutures yourself unless you are given permission. Showering is allowed the day after surgery. Do not scrub or remove any dressings. The wound should not be submerged underwater (i.e. in a bathtub or pool) until 4 weeks after surgery VIC stockings If you were given white stockings, these are to be worn at all times except to shower and sleep (on both legs) for the first 2 weeks after surgery. We will discuss removal at your first follow-up appointment. Driving No driving until seen in office at your 2wk post-op appointment. You may not drive while taking narcotic pain medication. We will discuss return to driving at your appointment. Return To Work Your return to work depends on what surgery was done and what type of work you do. Please bring any paperwork your employer needs completed to your first post-operative visit. Also, bring a description of your job duties, as this helps us to understand what risks you may face at work. Travel Avoid long distance travel (greater than 1 hour) in airplanes and cars for the first 6 weeks after surgery if possible. If you must travel, please let us know so we can discuss additional measures to prevent blood clots. Follow-up 11-15-19 at 10:45 You should have a follow-up appointment already scheduled for 2 weeks after surgery. If not, please contact our office to make this appointment before you leave the hospital. When to call the office [phone] It is normal to have swelling and bruising in the limb that was operated on. This will improve with time. It is also normal to have fevers for the first 2 days after surgery. Reasons you should call your doctor include: Uncontrolled pain; Nausea, vomiting, or constipation that does not improve with medication; Fevers over 101.5, chills, sweats; Drainage or bleeding from the wound; Foul odor; Spreading areas of redness; Any other concerns. NEW MEDICATIONS: new medications will be sent to your pharmacy: oxycodone, iron, vit c, tylenol, aspirin 81mg twice daily for 6wks then you can return to your daily once daily. Pending Studies at Discharge: No Stand-Alone Forms: [facility], Opioid Pain Management, Smoking Cessation Medications and DC Order Prescriptions: New aspirin 81 mg Tablet,Delayed Release (Dr/Ec) 81 mg PO BID 42 Days Qty: 84 RF: 0 acetaminophen 500 mg Tablet 1,000 mg PO Q8 PRN (Reason: pain) Qty: 60 RF: 0 oxycodone 5 mg Tablet 5 - 10 mg PO Q4H PRN (Reason: pain) Qty: 30 RF: 0 ferrous gluconate 324 mg (38 mg iron) Tablet 324 mg PO BIDM 14 Days Qty: 28 RF: 0 ascorbic acid (vitamin C) [Vitamin C] 500 mg Tablet 500 mg PO BIDM 14 Days Qty: 28 RF: 0 Continued citalopram 40 mg Tablet 40 mg PO QAM RF: 0 omeprazole 20 mg Capsule,Delayed Release(Dr/Ec) 20 mg PO QAM RF: 0 allopurinol 300 mg Tablet 300 mg PO BID RF: 0 pregabalin [Lyrica] 150 mg Capsule 150 mg PO BID RF: 0 lisinopril 10 mg Tablet 10 mg PO QAM RF: 0 metoprolol succinate 25 mg Tablet Extended Release 24 Hr 25 mg PO DAILY RF: 0 Discontinued aspirin [Aspir-81] 81 mg Tablet,Delayed Release (Dr/Ec) 81 mg PO QAM RF: 0 Discharge Orders: Discharge Order (Routine); Ordered 11/01/19 Ordered By: Lenka Dunaway/Other Patient Handouts: DVT Post Op Prevention, ED Betito Max Admission Data Admit Date/Time: 10/31/19 10:14 Attending Provider: Evan Arias Admit Provider: Evan Arias Primary Care Provider: Lizeth Aj Other Providers: Ham Meza ; Kin,Home Health Other Interventions: Discharge Summary Assessment (RN) Last Done: 11/01/19 14:11 DC Date/Time DO NOT enter until pt leaves facility: 11/01/19 15:41
== END 2019-11-01 15:41 | disposition home or self-care (01) ==
LOC: ASU 04:59 → 3E 04:59